=== PATIENT | female | born 1935 | race Caucasian/White ===

== ENCOUNTER 2016-09-30 17:19 | Emergency (ER) | payer OTHER ==
--- NOTE | ~2016-09-30 | CR156 ---
[facility]. [facility] A Service of [facility] & [facility] RADIOLOGY TEXT RESULTS PATIENT: DAVE SWENSON LOCATION: SED : 35 UNIT #: [id number] AGE: [address]: REJI QUINTANA SEX: F ORDER DR: [id number] [place] [id number] E MR#: [id number] Acc #: [id number] NAME: DAVE SWENSON : 1935 SEX: F STUDY DATE/TIME: 09/30/2016 18:44 UNIT: SED ROOM: STUDY DESCRIPTION: CR Humerus Min 2 View Lt Attending Physician: Reji Quintana Ordering Physician: Reji Quintana Primary Care Physician: Leighton Wyatt D.O. MEDICAL IMAGING REPORT This report is preliminary unless electronic signature is present. EXAM Left humerus. HISTORY Arm pain after falling today. TECHNIQUE 2 views of the humerus were obtained. FINDINGS There is no evidence of fracture, dislocation, or radiopaque foreign body. No focal bone lesions are seen. IMPRESSION Normal humerus. Dictated by... Leighton Lara M.D. THIS IS AN ELECTRONICALLY VERIFIED REPORT Leighton Lara M.D. at 09/30/2016 10:18 PM [email or web address]/[email or web address] TD: 09/30/2016 20:14 JOB #: [id number] MEDICAL IMAGING REPORT Page 1 of 1
--- NOTE | ~2016-09-30 | CR132 ---
[facility]. [facility] A Service of [facility] & [facility] RADIOLOGY TEXT RESULTS PATIENT: DAVE SWENSON LOCATION: SED : 35 UNIT #: [id number] AGE: [address]: REJI QUINTANA SEX: F ORDER DR: [id number] [place] [id number] E MR#: [id number] Acc #: [id number] NAME: DAVE SWENSON : 1935 SEX: F STUDY DATE/TIME: 09/30/2016 18:44 UNIT: SED ROOM: STUDY DESCRIPTION: CR Forearm 2 View Lt Attending Physician: Reji Quintana Ordering Physician: Reji Quintana Primary Care Physician: Leighton Wyatt D.O. MEDICAL IMAGING REPORT This report is preliminary unless electronic signature is present. EXAM Left forearm. HISTORY Pain after falling today. TECHNIQUE 2 views of the forearm were obtained. FINDINGS 2 views of the forearm show a radial head fracture. The distal forearm is intact. No foreign bodies are seen. 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 IMPRESSION Acute radial head fracture. Dictated by... Leighton Lara M.D. THIS IS AN ELECTRONICALLY VERIFIED REPORT Leighton Lara M.D. at 09/30/2016 10:18 PM LOLY/ed TD: 09/30/2016 20:16 JOB #: [id number] MEDICAL IMAGING REPORT Page 1 of 1
[~2016-09-30 17:19] MED LIST: ASPIRIN1 GM; ASPIRIN1 GM PO; ASPIRIN81 M1 PO; ASPIRINEC PO; BACTRIM DS TABL1 TAB PO; BAYER ASPIRIN325 M1; CALCIUM 1,2001 EACH PO; CRESTOR PO; KEFLEX PO; LIPITOR PO; VICODIN 5/500 T1 TAB PO; VIT E PO; ZOCOR PO
[2016-09-30] MEDS ORDERED: ASPIRIN81 MG PO (17:37)
== END 2016-09-30 20:00 | disposition home or self-care (01) ==
LOC: SED 17:19
DX: S52.122A Displaced fracture of head of left radius, initial encounter for closed fracture (principal); Z88.0 Allergy status to penicillin; Z79.82 Long term (current) use of aspirin; Z79.899 Other long term (current) drug therapy; W18.30XA Fall on same level, unspecified, initial encounter; Y92.512 Supermarket, store or market as the place of occurrence of the external cause
CPT/HCPCS: 29125; 73060; 73090; 99284